=== PATIENT | male | born 1970 | race African-American/Black ===

== ENCOUNTER 2017-01-28 16:54 | Emergency (ER) | payer MEDICAID ==
[~2017-01-28] VITALS: Ht 172.7 cm; Wt 70.0 kg
[2017-01-28] MEDS ORDERED: ACETAMINOPHEN 325MG TABLET PO ONE (17:30)
[2017-01-28 17:34] VITALS: BP 124/65
== END 2017-01-28 19:04 | disposition home or self-care (01) ==
LOC: ER 17:02
DX: S20.352A Superficial foreign body of left front wall of thorax, initial encounter (principal); S20.459A Superficial foreign body of unspecified back wall of thorax, initial encounter; W45.8XXA Other foreign body or object entering through skin, initial encounter; Y35.893A Legal intervention involving other specified means, suspect injured, initial encounter; Y93.89 Activity, other specified; Y92.520 Airport as the place of occurrence of the external cause
CPT/HCPCS: 99283